=== PATIENT | male | born 1975 | race Caucasian/White ===

== ENCOUNTER → 2018-04-09 | Emergency (ER) | payer OTHER ==
[~2018-04-09] MED LIST: FOLIC ACID INJECTION - 1 MG, THIAMINE HCL 100 MG, MULTIVIT INJECTION ADULT 10 ML in SOD... IVPB ONE
[2018-04-09 19:10] VITALS: BP 124/75; PULSE 112; TEMP 98.6; BMI 26.9
--- NOTE | 2018-04-09 20:31 | PDOC ---
*Physical Exam - Vital Signs Last Vital Signs Temp Pulse Resp BP Pulse Ox 98.6 F 112 H 20 124/75 96 04/09/18 19:08 04/09/18 19:08 04/09/18 19:08 04/09/18 19:08 04/09/18 19:08 Medical Decision Making - Medical Decision Making 04/09/18 20:31 Patient seen by the advanced practice provider under my direct supervision. Ancillary testing reviewed as necessary. I agree with plan as outlined by the advanced practice provider.
--- NOTE | 2018-04-09 20:49 | PDOC ---
History of Present Illness - General Chief Complaint: Alcohol intoxication Stated Complaint: SICK Time Seen by Provider: 04/09/18 20:27 History Source: Patient - History of Present Illness Initial Comments: 04/09/18 20:48 43 year old male reports drinking alcohol 3 days ago now feels sick. patient reports that he last had alcohol 3 days ago. denies NV, tremors, fever/ chills 04/10/18 04:29 Past History - Past Medical History Allergies/Adverse Reactions: Allergies Allergy/AdvReac Type Severity Reaction Status Date / Time No Known Allergies Allergy Verified 04/09/18 22:26 - Suicide/Smoking/Psychosocial Hx Smoking History: Unknown if ever smoked Hx Alcohol Use: Yes Drug/Substance Use Hx: Yes *Physical Exam - Vital Signs Last Vital Signs Temp Pulse Resp BP Pulse Ox 98.6 F 112 H 20 124/75 96 04/09/18 19:08 04/09/18 19:08 04/09/18 19:08 04/09/18 19:08 04/09/18 19:08 - Physical Exam General Appearance: Yes: Appropriately Dressed, Disheveled, Alcohol on Breath HEENT: positive: Other (normocephalic) Respiratory/Chest: positive: Lungs Clear, Normal Breath Sounds Gastrointestinal/Abdominal: positive: Normal Bowel Sounds, Soft. negative: Tender Integumentary: positive: Warm Neurologic: positive: Alert Moderate Sedation - Procedure Monitoring Vital Signs: Procedure Monitoring Vital Signs Temperature 98.6 F 04/09/18 19:08 Pulse Rate 112 H 04/09/18 19:08 Respiratory Rate 20 04/09/18 19:08 Blood Pressure 124/75 04/09/18 19:08 O2 Sat by Pulse Oximetry (%) 96 04/09/18 19:08 Medical Decision Making - Medical Decision Making A" alcohol abuse P: labs IVF sobriety patient is requesting rehab. will clear patient prior to d/c 04/09/18 22:40 patient walked out of the ER. reports that he does not want to be here. he walked out prior to workup. *DC/Admit/Observation/Transfer Diagnosis at time of Disposition: Alcohol abuse - Discharge Dispostion Disposition: ELOPED - Referrals - Patient Instructions - Post Discharge Activity
== END | disposition left against medical advice (07) ==
LOC: JER 18:51
DX: F10.120 Alcohol abuse with intoxication, uncomplicated (principal); Y90.9 Presence of alcohol in blood, level not specified
CPT/HCPCS: 99281-25; J7030